=== PATIENT | female | born 1930 | race Hispanic/Latino ===

== ENCOUNTER → 2018-02-27 | Outpatient (REF) | payer MEDICARE, MEDICAID ==
[~2018-02-27] MED LIST: ADLT ASA LOW81 MG PO; ADOXA PAK1 MG/150 M PO; ALDACTONE25 MG PO; AMIODARONE200 MG PO; ASPIRIN EC325 MG PO; ASPIRIN325 MG PO; ASPIRIN81 MG PO; AVANDARYL1 TA3 PO; AVELOX400 MG PO; COUMADIN2.5 MG PO; DIGOXIN0.125 MG PO; DOCUSATE CAL240 MG PO; FLAGYL 500500 MG/100 PO; FUROSEMIDE20 MG PO; FUROSEMIDE40 MG PO; HYDRALAZINE25 MG PO; HYDROCODONE/ACE1 TA7 PO; KEFLEX500 MG PO; LASIX 40 MG TAB40 MG PO; LASIX 40 MG40 MG/TAB PO; LISINOPRIL20 MG PO; LISINOPRIL5 MG PO; LYRICA25 MG PO; LYRICA75 MG PO; METOPROL TAR25 M1 PO; METOPROL TAR25 MG PO; METOPROL TAR50 MG PO; METRONIDAZOL500 MG PO; MULTIVITAMIN PO; NORCO1 TA1 PO; NORCO1 TA2 PO; NORVASC PO; PACERONE200 MG PO; PEPCID20 MG PO; PRAVASTATIN10 MG PO; ROCALTROL0.25 MCG PO; SIMVASTATIN10 MG PO; SIMVASTATIN40 MG PO; TRAMADL/APAP PO; TRAMADOL HCL50 MG PO; VITAMIN D32000 UNIT PO; WARFARIN2.5 MG PO; XARELTO10 MG PO; ZITHROMAX250 MG PO; ZOCOR10 MG PO; ZOCOR20 M1 PO
[2018-02-27 10:36] LABS: HEMATOCRIT 44.4 % (37.0-47.0); HEMOGLOBIN 13.8 g/dl (12.0-16.0); IMMATURE GRANULOCYTES 0.3 % (0.0-5.0); MEAN CELL VOLUME 100.5 fL CALC (80.0-100.0); MEAN CORPUSCULAR HGB 31.2 pG CALC (26.0-32.0); MEAN CORPUSCULAR HGB CONC 31.1 g/L CALC (32.0-36.0); NEUT# 3.95 thou/uL (2.00-7.15); RED BLOOD COUNT 4.42 mill/uL (4.20-5.60); RED CELL DISTRI WIDTH 13.6 % (11.5-15.5)
[2018-02-27 10:50] LABS: ALBUMIN 3.6 g/dL (3.2-5.0); BILIRUBIN, TOTAL 0.7 mg/dL (0.0-1.4); CREATININE 1.5 mg/dL (0.5-1.0)
[2018-02-27 11:04] LABS: POTASSIUM 5.4 mmol/l (3.5-5.1)
[2018-02-27 11:21] LABS: TSH, 3RD GENERATION 5.68 uIU/mL (0.47 - 4.68)
== END | disposition home or self-care (01) ==
LOC: LAB 09:45
PROVIDERS: ATTEND Nurse Practitioner Adult Health
DX: I10 Essential (primary) hypertension (principal); I50.22 Chronic systolic (congestive) heart failure

== ENCOUNTER → 2018-03-04 | Outpatient (REF) | payer MEDICARE, MEDICAID ==
[2018-03-04 11:21] LABS: ALBUMIN 3.4 g/dL (3.2-5.0); BILIRUBIN, TOTAL 0.7 mg/dL (0.0-1.4); CREATININE 1.4 mg/dL (0.5-1.0); TOTAL PROTEIN 6.8 g/dL (6.3-8.2)
[2018-03-04 11:24] LABS: POTASSIUM 5.8 mmol/l (3.5-5.1)
== END | disposition home or self-care (01) ==
LOC: LAB 09:37
PROVIDERS: ATTEND Nurse Practitioner Adult Health
DX: I10 Essential (primary) hypertension (principal); N18.3 Chronic kidney disease, stage 3 (moderate)

== ENCOUNTER 2018-04-21 15:14 | Inpatient (IN) | payer MEDICARE, MEDICAID ==
[~2018-04-21] VITALS: Ht 154.9 cm; Wt 58.7 kg
[2018-04-21] MEDS ORDERED: AMIODARONE200 MG PO (15:38)
[2018-04-21] MEDS ORDERED: HYDROCO/APAP1 TA9 PO (15:39)
[2018-04-21] MEDS ORDERED: ASPIRIN81 MG PO (15:41)
[2018-04-21 16:39] LABS: HEMATOCRIT 43.3 % (37.0-47.0); HEMOGLOBIN 13.4 g/dl (12.0-16.0); IMMATURE GRANULOCYTES 0.3 % (0.0-5.0); MEAN CELL VOLUME 101.2 fL CALC (80.0-100.0); MEAN CORPUSCULAR HGB 31.3 pG CALC (26.0-32.0); MEAN CORPUSCULAR HGB CONC 30.9 g/L CALC (32.0-36.0); NEUT# 5.96 thou/uL (2.00-7.15); RED BLOOD COUNT 4.28 mill/uL (4.20-5.60)
[2018-04-21 16:57] LABS: ALBUMIN 3.4 g/dL (3.2-5.0); ALKALINE PHOSPHATASE 197 u/l (38-126); ANION GAP 13 (6-22 (CALC)); BILIRUBIN, TOTAL 1.1 mg/dL (0.0-1.4); BUN 19 mg/dL (8-23); BUN/CREATININE RATIO 21 (12-20 (CALC)); CARBON DIOXIDE 26 mmol/l (22-30); CHLORIDE 104 mmol/l (95-108); CREATININE 0.9 mg/dL (0.5-1.0); GFR 59 ML/MIN (>=60 (CALC)); GFR FOR AFR.AMER. > 60 ML/MIN (>=60 (CALC)); POTASSIUM 4.7 mmol/l (3.5-5.1); SGOT/AST 32 u/l (9-36); SODIUM 138 mmol/l (137-146); TOTAL PROTEIN 6.8 g/dL (6.3-8.2)
[2018-04-21 18:25] VITALS: BP 163/83
[2018-04-21 18:33] VITALS: BP 163/83
[2018-04-21 20:10] VITALS: BP 133/81
[2018-04-22 00:34] VITALS: BP 140/88
[2018-04-22 05:28] VITALS: BP 131/83
[2018-04-22 05:58] LABS: HEMOGLOBIN 13.1 g/dl (12.0-16.0); IMMATURE GRANULOCYTES 0.4 % (0.0-5.0); MEAN CELL VOLUME 101.2 fL CALC (80.0-100.0); MEAN CORPUSCULAR HGB 31.6 pG CALC (26.0-32.0); MEAN CORPUSCULAR HGB CONC 31.2 g/L CALC (32.0-36.0); RED BLOOD COUNT 4.15 mill/uL (4.20-5.60); RED CELL DISTRI WIDTH 13.9 % (11.5-15.5)
[2018-04-22 06:14] LABS: ANION GAP 8 (6-22 (CALC)); BUN 19 mg/dL (8-23); BUN/CREATININE RATIO 19 (12-20 (CALC)); CARBON DIOXIDE 36 mmol/l (22-30); CHLORIDE 100 mmol/l (95-108); GFR 52 ML/MIN (>=60 (CALC)); GFR FOR AFR.AMER. > 60 ML/MIN (>=60 (CALC)); POTASSIUM 4.4 mmol/l (3.5-5.1); SODIUM 140 mmol/l (137-146)
[2018-04-22 08:24] VITALS: BP 111/71
[2018-04-22 11:30] VITALS: BP 135/70
[2018-04-22 14:20] LABS: URINE BILIRUBIN - DIPSTICK NEGATIVE (NEGATIVE); URINE BLOOD DIPSTICK NEGATIVE (NEGATIVE); URINE CLARITY CLEAR; URINE COLOR YELLOW; URINE GLUCOSE - DIPSTICK NEGATIVE (NEGATIVE); URINE KETONE NEGATIVE (NEGATIVE); URINE LEUK ESTERASE NEGATIVE (NEGATIVE); URINE NITRITE - DIPSTICK NEGATIVE (Negative); URINE PH 6.5 (4.5-8.0); URINE PROTEIN - DIPSTICK NEGATIVE (NEG-TRACE); URINE UROBILINOGEN - DIPSTICK 0.2 E.U./dL (0.2)
[2018-04-22 15:28] VITALS: BP 118/68
[2018-04-22 19:56] VITALS: BP 115/68
[2018-04-23] VITALS: BP 109/68
[2018-04-23 05:23] VITALS: BP 107/69
[2018-04-23 05:34] LABS: HEMATOCRIT 42.2 % (37.0-47.0); HEMOGLOBIN 13.2 g/dl (12.0-16.0); IMMATURE GRANULOCYTES 0.4 % (0.0-5.0); MEAN CELL VOLUME 100.7 fL CALC (80.0-100.0); MEAN CORPUSCULAR HGB 31.5 pG CALC (26.0-32.0); MEAN CORPUSCULAR HGB CONC 31.3 g/L CALC (32.0-36.0); NEUT# 5.19 thou/uL (2.00-7.15); RED BLOOD COUNT 4.19 mill/uL (4.20-5.60); RED CELL DISTRI WIDTH 13.8 % (11.5-15.5)
[2018-04-23 06:01] LABS: BILIRUBIN, TOTAL 0.8 mg/dL (0.0-1.4); CREATININE 1.1 mg/dL (0.5-1.0); MAGNESIUM 1.4 mg/dL (1.6-2.3); POTASSIUM 4.2 mmol/l (3.5-5.1); TOTAL PROTEIN 6.1 g/dL (6.3-8.2)
[2018-04-23 09:22] VITALS: BP 131/93
[2018-04-23 11:33] VITALS: BP 110/68
[2018-04-23 15:38] VITALS: BP 108/51
[2018-04-23 19:06] VITALS: BP 99/68
[2018-04-24] VITALS (7 sets, daily range): BP systolic 98–115; BP diastolic 60–78
[2018-04-24 05:20] LABS: HEMATOCRIT 40.3 % (37.0-47.0); HEMOGLOBIN 12.8 g/dl (12.0-16.0); IMMATURE GRANULOCYTES 0.4 % (0.0-5.0); MEAN CELL VOLUME 100.8 fL CALC (80.0-100.0); MEAN CORPUSCULAR HGB CONC 31.8 g/L CALC (32.0-36.0); NEUT# 7.15 thou/uL (2.00-7.15); RED CELL DISTRI WIDTH 13.8 % (11.5-15.5)
[2018-04-24 05:29] LABS: INTERNATIONAL NORMALIZED RATIO 1.2 RATIO (0.7-1.3); PROTHROMBIN TIME 12.2 SECONDS (9.0-12.5)
[2018-04-24 05:37] LABS: ALBUMIN 2.9 g/dL (3.2-5.0); BILIRUBIN, TOTAL 0.9 mg/dL (0.0-1.4); CREATININE 1.2 mg/dL (0.5-1.0); MAGNESIUM 1.4 mg/dL (1.6-2.3); POTASSIUM 3.4 mmol/l (3.5-5.1)
[2018-04-25 00:46] VITALS: BP 102/65
[2018-04-25 00:47] VITALS: BP 115/48
[2018-04-25 03:32] VITALS: BP 116/71
[2018-04-25 04:52] LABS: HEMATOCRIT 40.3 % (37.0-47.0); HEMOGLOBIN 12.7 g/dl (12.0-16.0); IMMATURE GRANULOCYTES 0.4 % (0.0-5.0); MEAN CORPUSCULAR HGB 31.8 pG CALC (26.0-32.0); MEAN CORPUSCULAR HGB CONC 31.5 g/L CALC (32.0-36.0); NEUT# 5.36 thou/uL (2.00-7.15); RED BLOOD COUNT 3.99 mill/uL (4.20-5.60); RED CELL DISTRI WIDTH 13.5 % (11.5-15.5)
[2018-04-25 05:17] LABS: ALBUMIN 2.9 g/dL (3.2-5.0); BILIRUBIN, TOTAL 0.7 mg/dL (0.0-1.4); CREATININE 1.2 mg/dL (0.5-1.0); MAGNESIUM 1.6 mg/dL (1.6-2.3); TOTAL PROTEIN 5.9 g/dL (6.3-8.2)
[2018-04-25 09:12] VITALS: BP 110/72
[2018-04-25 11:05] VITALS: BP 103/58
[2018-04-25] MEDS ORDERED: AMIODARONE200 MG PO (12:50)
[2018-04-25] MEDS ORDERED: LISINOPRIL5 MG PO (12:51)
[2018-04-25] MEDS ORDERED: CIPROFLOXACN500 MG PO (12:53)
[2018-04-25 15:00] VITALS: BP 100/76
== END 2018-04-25 18:52 | disposition home or self-care (01) | DRG 177 ==
LOC: ED 15:14 → ED-I 17:15 → ED 17:48 → MS2 17:49
PROVIDERS: Emergency Medicine; Internal Medicine Nephrology; Nurse Practitioner Family; ADMIT Internal Medicine; ATTEND Internal Medicine
PROC: 0T9B70Z Drainage of Bladder with Drainage Device, Via Natural or Artificial Opening (ICD-10-PCS; principal; 2018-04-22)
DX: J15.6 Pneumonia due to other Gram-negative bacteria (principal); I50.33 Acute on chronic diastolic (congestive) heart failure; J96.01 Acute respiratory failure with hypoxia; J44.0 Chronic obstructive pulmonary disease with (acute) lower respiratory infection; J91.8 Pleural effusion in other conditions classified elsewhere; E87.3 Alkalosis; N17.9 Acute kidney failure, unspecified; E87.1 Hypo-osmolality and hyponatremia; I11.0 Hypertensive heart disease with heart failure; I25.10 Atherosclerotic heart disease of native coronary artery without angina pectoris; F03.90 Unspecified dementia, unspecified severity, without behavioral disturbance, psychotic disturbance, mood disturbance, and anxiety; M19.90 Unspecified osteoarthritis, unspecified site; G62.9 Polyneuropathy, unspecified; E78.5 Hyperlipidemia, unspecified; D69.6 Thrombocytopenia, unspecified; K59.00 Constipation, unspecified; I48.2 Chronic atrial fibrillation; T46.4X5A Adverse effect of angiotensin-converting-enzyme inhibitors, initial encounter; T50.2X5A Adverse effect of carbonic-anhydrase inhibitors, benzothiadiazides and other diuretics, initial encounter; Z95.1 Presence of aortocoronary bypass graft; Z96.653 Presence of artificial knee joint, bilateral; Z95.2 Presence of prosthetic heart valve; Z95.0 Presence of cardiac pacemaker

== ENCOUNTER 2018-05-08 15:38 | Emergency (ER) | payer MEDICARE, MEDICAID ==
[~2018-05-08] VITALS: Ht 154.9 cm; Wt 70.0 kg
[~2018-05-08 15:38] MED LIST changes: +CIPROFLOXACN500 MG PO; +HYDROCO/APAP1 TA9 PO
[2018-05-08 16:08] LABS: HEMOGLOBIN 14.4 g/dl (12.0-16.0); IMMATURE GRANULOCYTES 0.6 % (0.0-5.0); MEAN CORPUSCULAR HGB 31.6 pG CALC (26.0-32.0); NEUT# 10.49 thou/uL (2.00-7.15); RED BLOOD COUNT 4.56 mill/uL (4.20-5.60); RED CELL DISTRI WIDTH 14.2 % (11.5-15.5)
[2018-05-08 16:09] LABS: HEMATOCRIT 46.5 % (37.0-47.0)
[2018-05-08 16:30] LABS: ALKALINE PHOSPHATASE 160 u/l (38-126); BILIRUBIN, TOTAL 0.7 mg/dL (0.0-1.4); BUN 33 mg/dL (8-23); BUN/CREATININE RATIO 28 (12-20 (CALC)); CARBON DIOXIDE 29 mmol/l (22-30); CHLORIDE 103 mmol/l (95-108); CREATININE 1.2 mg/dL (0.5-1.0); GFR 42 ML/MIN (>=60 (CALC)); GFR FOR AFR.AMER. 51 ML/MIN (>=60 (CALC)); SODIUM 142 mmol/l (137-146)
[2018-05-08 16:33] LABS: ALBUMIN 3.8 g/dL (3.2-5.0); ANION GAP 15 (6-22 (CALC)); POTASSIUM 5.2 mmol/l (3.5-5.1); SGOT/AST 53 u/l (9-36); TOTAL PROTEIN 7.3 g/dL (6.3-8.2)
[2018-05-08 16:40] LABS: MYOGLOBIN 48 ng/mL (0 - 62)
[2018-05-08] MEDS ORDERED: LASIX 40 MG TAB40 MG PO (17:57)
[2018-05-08 19:00] VITALS: BP 129/83
== END 2018-05-08 18:42 | disposition home or self-care (01) ==
LOC: ED 15:38
PROVIDERS: Family Medicine
DX: I11.0 Hypertensive heart disease with heart failure (principal); I50.9 Heart failure, unspecified; I25.10 Atherosclerotic heart disease of native coronary artery without angina pectoris; J44.9 Chronic obstructive pulmonary disease, unspecified; E78.5 Hyperlipidemia, unspecified; I73.9 Peripheral vascular disease, unspecified; Z95.1 Presence of aortocoronary bypass graft; Z95.0 Presence of cardiac pacemaker

== ENCOUNTER 2018-05-31 11:31 | Emergency (ER) | payer MEDICARE, MEDICAID ==
[~2018-05-31] VITALS: Ht 154.9 cm; Wt 70.0 kg
[2018-05-31] MEDS ORDERED: LYRICA50 MG PO (11:37)
[2018-05-31] MEDS ORDERED: LASIX 40 MG TAB40 MG PO (11:38)
[2018-05-31] MEDS ORDERED: ASPIRIN EC325 MG PO (11:38)
[2018-05-31] MEDS ORDERED: HYDROCO/APAP1 TA9 PO (11:38)
[2018-05-31] MEDS ORDERED: CORDARONE/PACE100 MG PO (11:40)
[2018-05-31] MEDS ORDERED: CALCITRIOL0.25 MC1 PO (11:40)
[2018-05-31] MEDS ORDERED: LOPRESSOR25 M1 PO (11:41)
[2018-05-31 15:50] VITALS: BP 157/74
== END 2018-05-31 15:50 | disposition home or self-care (01) ==
LOC: ED 11:31
DX: R04.0 Epistaxis (principal); Z79.82 Long term (current) use of aspirin

== ENCOUNTER 2018-06-06 08:09 | Emergency (ER) | payer MEDICARE, MEDICAID ==
[~2018-06-06] VITALS: Ht 154.9 cm; Wt 55.0 kg
[~2018-06-06 08:09] MED LIST changes: +CALCITRIOL0.25 MC1 PO; +CORDARONE/PACE100 MG PO; +LOPRESSOR25 M1 PO; +LYRICA50 MG PO
[2018-06-06 08:51] LABS: HEMATOCRIT 45.8 % (37.0-47.0); HEMOGLOBIN 14.3 g/dl (12.0-16.0); IMMATURE GRANULOCYTES 0.3 % (0.0-5.0); MEAN CELL VOLUME 99.3 fL CALC (80.0-100.0); MEAN CORPUSCULAR HGB CONC 31.2 g/L CALC (32.0-36.0); NEUT# 3.07 thou/uL (2.00-7.15); RED BLOOD COUNT 4.61 mill/uL (4.20-5.60); RED CELL DISTRI WIDTH 13.3 % (11.5-15.5)
[2018-06-06 09:01] LABS: INTERNATIONAL NORMALIZED RATIO 1.1 RATIO (0.7-1.3); PROTHROMBIN TIME 11.5 SECONDS (9.0-12.5)
[2018-06-06 09:04] LABS: ALBUMIN 3.8 g/dL (3.2-5.0); CREATININE 1.4 mg/dL (0.5-1.0); POTASSIUM 5.1 mmol/l (3.5-5.1)
[2018-06-06] MEDS ORDERED: AUGMENTIN500TAB PO (09:27)
[2018-06-06 09:44] VITALS: BP 114/74
== END 2018-06-06 11:33 | disposition home or self-care (01) ==
LOC: ED 08:09
PROVIDERS: Emergency Medicine
PROC: 2Y41X5Z Packing of Nasal Region using Packing Material (ICD-10-PCS; principal; 2018-06-06)
DX: R04.0 Epistaxis (principal); I11.0 Hypertensive heart disease with heart failure; I50.9 Heart failure, unspecified; J44.9 Chronic obstructive pulmonary disease, unspecified; E78.5 Hyperlipidemia, unspecified; I25.10 Atherosclerotic heart disease of native coronary artery without angina pectoris; G47.30 Sleep apnea, unspecified; Z95.1 Presence of aortocoronary bypass graft; Z95.0 Presence of cardiac pacemaker

== ENCOUNTER → 2018-07-22 | Outpatient (REF) | payer MEDICARE, MEDICAID ==
[~2018-07-22] MED LIST changes: +AUGMENTIN500TAB PO
[2018-07-22 13:23] LABS: ANION GAP 13 (6-22 (CALC)); BUN 20 mg/dL (8-23); BUN/CREATININE RATIO 20 (12-20 (CALC)); CARBON DIOXIDE 34 mmol/l (22-30); CHLORIDE 98 mmol/l (95-108); GFR 52 ML/MIN (>=60 (CALC)); GFR FOR AFR.AMER. > 60 ML/MIN (>=60 (CALC)); POTASSIUM 4.3 mmol/l (3.5-5.1); SODIUM 141 mmol/l (137-146)
== END | disposition home or self-care (01) ==
LOC: LAB 11:33
PROVIDERS: ATTEND Internal Medicine
DX: I10 Essential (primary) hypertension (principal); E03.9 Hypothyroidism, unspecified